=== PATIENT | male | born 1995 | race Caucasian/White ===

== ENCOUNTER 2016-05-27 23:05 | Emergency (ER) | payer MEDICAID ==
--- NOTE | 2016-05-27 23:27 | EDM.PDOC ---
ED HPI GI/ABDOMINAL - General Chief Complaint: Abdominal Pain Stated Complaint: RIGHT SIDE PAIN Time Seen by Provider: 05/27/16 23:27 - History of Present Illness INITIAL COMMENTS - FREE TEXT/NARRATIVE: 20-year-old male presents emergency room with right pelvic and abdominal pain. Approximately 2 hours before arrival the patient was playing ball in the gymnasium he slid on the floor and hit a slight out bleacher pretty hard. The patient has difficulty with ambulation since then he cannot run he can walk okay but does have some tenderness. Patient has not developed any nausea vomiting. Patient denies any other injuries. - Related Data Allergies/ADRs: Allergies Allergy/AdvReac Type Severity Reaction Status Date / Time Penicillins Allergy Cannot Verified 05/27/16 23:23 Remember Home Meds: Home Meds . [No Known Home Meds] 05/27/16 [History] Past Medical History - Past Surgical History HEENT Surgical History: Reports: Oral surgery Social & Family History - Tobacco Use Smoking Status *Q: Never Smoker - Caffeine Use Caffeine Use: Reports: Energy drinks, Soda - Recreational Drug Use Drug Use in Last 12 Months: Yes Recreational Drug Type: Reports: Marijuana/Hashish ED ROS GENERAL - Review of Systems Review Of Systems: See Below Constitutional: Reports: no symptoms. Denies: fever, chills HEENT: Reports: No symptoms Respiratory: Reports: no symptoms Cardiovascular: Reports: No symptoms GI/Abdominal: Reports: No symptoms : Reports: no symptoms ED EXAM, GI/ABD - Physical Exam Exam: See Below Exam Limited By: No limitations General Appearance: alert, no apparent distress Head: atraumatic, normocephalic Neck: normal inspection, supple, non-tender, full range of motion Respiratory/Chest: no respiratory distress, lungs clear, normal breath sounds Cardiovascular: regular rate, rhythm, no edema, no murmur GI/Abdominal: normal bowel sounds, soft, non tender, other (this is tenderness seems to be more over the anterior lateral iliac crest he has point tenderness to this area no other palpable tenderness). No: tenderness, distention, guarding, rebound, rigidity Extremities: normal inspection, normal range of motion, non-tender, no pedal edema, other (he has tenderness over the right iliac crest) Neurological: alert, oriented Psychiatric: normal affect, normal mood Skin Exam: Warm, Dry Course - Vital Signs Last Recorded V/S: Last Vital Signs Temp 36.5 C 05/27/16 23:25 Pulse 69 05/27/16 23:25 Resp 20 05/27/16 23:25 BP 135/93 H 05/27/16 23:25 Pulse Ox 97 05/27/16 23:25 - Orders/Labs/Meds Orders: Active Orders 24 hr Category Date Time Status Pelvis 1V or 2V [CR] Stat Exams 05/28/16 00:14 Taken - Re-Assessments/Exams Free Text/Narrative Re-Assessment/Exam: 05/28/16 02:49 pelvis x-rays normal the patient has been observed he has developed no other symptoms here in the emergency room he would like to go home and get some rest he denies needing anything for pain we'll try to work with ibuprofen if needed. Departure - Departure Time of Disposition: 02:14 Disposition: Home, Self-Care 01 Clinical Impression: Contusion of pelvis Instructions: Contusion, [id number] Referrals: PCP,None [Primary Care Provider] - Forms: ED Department Discharge Additional Instructions: Return to the emergency room with any questions or problems. Return to the emergency room with any nausea vomiting or development of abdominal pain. Ibuprofen as needed for discomfort - My Orders Last 24 Hours: My Active Orders 05/28/16 00:14 Pelvis 1V or 2V [CR] Stat - Assessment/Plan Last 24 Hours: My Active Orders 05/28/16 00:14 Pelvis 1V or 2V [CR] Stat
[2016-05-27 23:28] VITALS: BP 135/93
--- NOTE | 2016-05-28 08:44 | CR ---
Pelvis: AP view of the pelvis was obtained. Comparison: No previous study. Joint spaces within both hips are maintained. Sacroiliac joints are unremarkable. No acute fracture or other bony abnormality is seen. Impression: 1. No abnormality is identified on AP pelvis study. Diagnostic code #1
== END 2016-05-28 02:20 | disposition home or self-care (01) ==
LOC: JD.ED 23:05
DX: S30.0XXA Contusion of lower back and pelvis, initial encounter (principal); Z88.0 Allergy status to penicillin; Z98.890 Other specified postprocedural states; W22.09XA Striking against other stationary object, initial encounter
CPT/HCPCS: 72170; 72170-26; 99282; 99283